=== PATIENT | male | born 1990 | race American Indian/Alaskan Native ===

== ENCOUNTER 2021-10-27 01:47 | Emergency (ER) | payer SELFPAY ==
[2021-10-27] MEDS ORDERED: SODIUM CHLORIDE 0.9% 1000 ML 2,000 ML IV ONE (02:09)
[2021-10-27] MEDS ORDERED: LORazepam 2 MG/ML VIAL IM ONE (02:09)
--- NOTE | 2021-10-27 02:32 | XRay Report ---
CHEST 1 VIEW 10/27/2021 1:25 AM INDICATION / CLINICAL INFORMATION: Medical Clearance Psych/ ALTERED MENTAL STATUS. COMPARISON: None available. FINDINGS: SUPPORT DEVICES: None. HEART / MEDIASTINUM: The heart size and pulmonary vasculature are normal. LUNGS / PLEURA: No significant pulmonary or pleural abnormality. No pneumothorax. ADDITIONAL FINDINGS: No significant additional findings. IMPRESSION: No acute findings. Signer Name: Jaziel Wheeler MD Signed: 10/27/2021 2:28 AM Workstation Name: [id number]
[2021-10-27 02:53] LABS: Basophils % (Auto) 0.1 % (0.0-1.8); Hematocrit 40.9 % (35.5-45.6); Hemoglobin 13.6 gm/dl (11.8-15.2); Lymphocytes # (Auto) 1.2 K/mm3 (1.2-5.4); Lymphocytes % (Auto) 19.4 % (13.4-35.0); Mean Corpuscular HGB Conc 33 % (32-34); Mean Corpuscular Volume 94 fl (84-94); Monocytes # (Auto) 0.5 K/mm3 (0.0-0.8); Platelet Count 303 K/mm3 (140-440); Red Blood Count 4.34 M/mm3 (3.65-5.03); Red Cell Distribution Width 13.5 % (13.2-15.2)
[2021-10-27] MEDS ORDERED: LORazepam 2 MG/ML VIAL IV ONE (02:53)
[2021-10-27 03:05] LABS: Alanine Aminotransferase 16 units/L (7-56); Albumin 4.2 g/dL (3.9-5); BUN/Creatinine Ratio 12; Blood Urea Nitrogen 13 mg/dL (9-20); Calcium 8.7 mg/dL (8.4-10.2); Hemolysis Index 28
[2021-10-27 04:56] LABS: Bilirubin,Urine NEG (Negative); Blood,Urine NEG (Negative); Color,Urine Colorless (Yellow); Mucus,Urine FEW /HPF; Protein,Urine <15 mg/dL mg/dL (Negative); Urobilinogen,Urine < 2.0 mg/dL (<2.0)
[2021-10-27 05:04] LABS: Amphetamine Screen,Urine Negative; Benzodiazepines Screen,Urine Negative; Cocaine Screen,Urine Negative; Methadone Screen,Urine Negative; Opiate Screen,Urine Negative
--- NOTE | 2021-10-27 05:16 | Emergency Department Report ---
ED General Adult HPI - General Chief complaint: Overdose Stated complaint: POSSIBLE OD Time Seen by Provider: 10/27/21 02:09 Source: patient, family Mode of arrival: Ambulatory Limitations: No Limitations - History of Present Illness Initial comments: Brought in by brother. Very restless Stating that his heart is going fast. He two 2 mollys and cannibis. -: Gradual, hour(s) Consistency: intermittent Improves with: none Worsens with: none Treatments Prior to Arrival: none - Related Data Allergies Allergy/AdvReac Type Severity Reaction Status Date / Time No Known Allergies Allergy Unverified 10/27/21 02:10 ED Review of Systems ROS: Stated complaint: POSSIBLE OD Other details as noted in HPI Constitutional: denies: chills, fever Eyes: denies: eye pain, eye discharge, vision change ENT: denies: ear pain, throat pain Respiratory: denies: cough, shortness of breath, wheezing Cardiovascular: denies: chest pain, palpitations Endocrine: no symptoms reported Gastrointestinal: denies: abdominal pain, nausea, diarrhea Genitourinary: denies: urgency, dysuria Musculoskeletal: denies: back pain, joint swelling, arthralgia Skin: denies: rash, lesions Neurological: denies: headache, weakness, paresthesias Psychiatric: denies: anxiety, depression Hematological/Lymphatic: denies: easy bleeding, easy bruising ED Past Medical Hx - Past Medical History Previous Medical History?: No - Surgical History Past Surgical History?: No - Social History Smoking Status: Current Every Day Smoker Substance Use Type: Marijuana, Methamphetamines ED Physical Exam - General Limitations: No Limitations General appearance: alert, appears intoxicated - Head Head exam: Present: atraumatic, normocephalic - Eye Eye exam: Present: normal appearance - ENT ENT exam: Present: mucous membranes moist - Neck Neck exam: Present: normal inspection - Respiratory Respiratory exam: Present: normal lung sounds bilaterally. Absent: respiratory distress - Cardiovascular Cardiovascular Exam: Present: regular rate, tachycardia. Absent: systolic murmur, diastolic murmur, rubs, gallop - GI/Abdominal GI/Abdominal exam: Present: soft, normal bowel sounds - Rectal Rectal exam: Present: deferred - Extremities Exam Extremities exam: Present: normal inspection - Back Exam Back exam: Present: normal inspection - Neurological Exam Neurological exam: Present: alert, oriented X3 - Psychiatric Psychiatric exam: Present: agitated, anxious. Absent: homicidal ideation, suicidal ideation - Skin Skin exam: Present: warm, dry, intact, normal color. Absent: rash ED Course Vital Signs 10/27/21 01:55 Temperature 98 F Pulse Rate 148 H Respiratory 20 Rate Blood Pressure 144/83 O2 Sat by Pulse 98 Oximetry - Reevaluation(s) Reevaluation #1: 10/27/21 05:13 fluids and ativan given feels better no SI or HI heart rate doen to 100 ED Medical Decision Making - Lab Data Result diagrams: 10/27/21 02:25 10/27/21 02:25 Critical care attestation.: If time is entered above; I have spent that time in minutes in the direct care of this critically ill patient, excluding procedure time. ED Disposition Clinical Impression: Substance abuse, Tetrahydrocannabinol (THC) use disorder, mild, abuse Disposition: 01 HOME / SELF CARE / HOMELESS Is pt being admited?: No Does the pt Need Aspirin: No Condition: Stable Referrals: MANAN BROWNING MD [Primary Care Provider] - 3-5 Days
[2021-10-27 05:26] LABS: Cannabinoid Screen,Urine PRESUMPTIVE POSITIVE
[2021-10-27 06:56] VITALS: BP 102/64
--- NOTE | 2021-10-27 11:46 | Electrocardiograph Report ---
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
== END 2021-10-27 08:16 | disposition home or self-care (01) ==
LOC: ED 01:47
DX: F19.10 Other psychoactive substance abuse, uncomplicated (principal); F17.200 Nicotine dependence, unspecified, uncomplicated; F12.90 Cannabis use, unspecified, uncomplicated; Z79.899 Other long term (current) drug therapy
CPT/HCPCS: 36415; 71045; 80053; 80307; 81001; 84443; 85025; 93005; 93010; 96361; 96372; 96374; 99285; J2060; J7030; 80320; Q0162; G0480

== ENCOUNTER 2021-12-31 21:45 | Emergency (ER) | payer SELFPAY ==
[2021-12-31 22:19] VITALS: BP 122/81
[2022-01-01] MEDS: LIDOCAINE-MPF (1%) 10 MG/1 ML VIAL 5 ML INFILTRATI ONE (02:39)
--- NOTE | 2022-01-01 02:53 | Emergency Department Report ---
<MELISSA SEARS - Last Filed: 01/01/22 05:30> ED Male HPI - General Chief complaint: Urogenital-Male Stated complaint: BURNING URINATION/PENILE DISCHARGE Source: patient Mode of arrival: Ambulatory Limitations: No Limitations - History of Present Illness Initial comments: Patient is a 31-year-old -[place] male with no past medical history presents to the ED with complaint of acute onset persistent dysuria, urinary frequency and urgency, and penile discharge for the last 4 days. Patient states that he had unprotected sexual intercourse about a week ago with a new sexual partner. Patient states that the pain is especially worse with urination. Patient denies dizziness, syncope, nausea and vomiting, chest pain, shortness of breath, testicular pain, hematuria, abdominal pain, diarrhea, low back pain, fever and chills. MD Complaint: penile discharge (Penile discharge), dysuria -: Sudden, days(s) (4) Location: penis Radiation: none Severity: severe Severity scale (0 -10): 7 Quality: burning, sharp Consistency: constant Improves with: none Worsens with: urination new sexual partner denies other symptoms, discharge, dysuria. denies: swelling, mass, rash, urinary retention, blood in urine, fever, nausea/vomiting, incontinence - Related Data Sexually active: Yes Previous Rx's Medication Instructions Recorded Last Taken Type Doxycycline Hyclate 100 mg PO Q12H #28 cap 01/01/22 Unknown Rx Phenazopyridine [Pyridium] 200 mg PO BID #20 tab 01/01/22 Unknown Rx Allergies Allergy/AdvReac Type Severity Reaction Status Date / Time No Known Allergies Allergy Unverified 10/27/21 02:10 ED Review of Systems Constitutional: denies: chills, fever Eyes: denies: eye pain, eye discharge, vision change ENT: denies: ear pain, throat pain Respiratory: denies: cough, shortness of breath, wheezing Cardiovascular: denies: chest pain, palpitations Endocrine: no symptoms reported Gastrointestinal: denies: abdominal pain, nausea, diarrhea Genitourinary: urgency, dysuria, frequency, discharge. denies: hematuria, testicular pain, testicular mass Musculoskeletal: denies: back pain, joint swelling, arthralgia Skin: denies: rash, lesions Neurological: denies: headache, weakness, paresthesias Psychiatric: denies: anxiety, depression Hematological/Lymphatic: denies: easy bleeding, easy bruising ED Past Medical Hx - Social History Smoking Status: Never Smoker Substance Use Type: Alcohol - Medications Home Medications: Home Medications Medication Instructions Recorded Confirmed Last Taken Type Doxycycline Hyclate 100 mg PO Q12H #28 cap 01/01/22 Unknown Rx Phenazopyridine [Pyridium] 200 mg PO BID #20 tab 01/01/22 Unknown Rx ED Physical Exam - General Limitations: No Limitations General appearance: alert, in no apparent distress - Head Head exam: Present: atraumatic, normocephalic, normal inspection - Eye Eye exam: Present: normal appearance, PERRL, EOMI Pupils: Present: normal accommodation - ENT ENT exam: Present: normal exam, normal orophraynx, mucous membranes moist, TM's normal bilaterally, normal external ear exam - Neck Neck exam: Present: normal inspection, full ROM. Absent: tenderness - Respiratory Respiratory exam: Present: normal lung sounds bilaterally. Absent: respiratory distress, wheezes, rales, rhonchi, stridor, chest wall tenderness, accessory muscle use, decreased breath sounds, prolonged expiratory - Cardiovascular Cardiovascular Exam: Present: normal rhythm, tachycardia, normal heart sounds. Absent: systolic murmur, diastolic murmur, rubs, gallop - GI/Abdominal GI/Abdominal exam: Present: soft, normal bowel sounds. Absent: tenderness, guarding, rebound, hyperactive bowel sounds, hypoactive bowel sounds, organomegaly, mass - exam: Present: urethral discharge, circumcision. 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 Absent: tenderness, CVA tenderness (R), CVA tenderness (L), muscle spasm, paraspinal tenderness, vertebral tenderness - Neurological Exam Neurological exam: Present: alert, oriented X3, CN II-XII intact, normal gait, reflexes normal - Psychiatric Psychiatric exam: Present: normal affect, normal mood - Skin Skin exam: Present: warm, dry, intact, normal color. Absent: rash ED Medical Decision Making - Medical Decision Making This is a 31-year-old -[place] male with no past medical history presents to the ED with complaint of acute onset persistent dysuria, urinary frequency and urgency, and penile discharge for the last 4 days. Patient states that he had unprotected sexual intercourse about a week ago with a new sexual partner. Patient states that the pain is especially worse with urination. In the ED, patient is alert and oriented x3 and is not in any distress. Urinalysis was ordered and the patient was empirically treated for suspected gonorrhea infection. Patient was discharged home on medications and advised to ensure that his sexual partner gets treated. Patient was also counseled on the importance of safe sexual practices. Patient was advised to follow-up with the [facility] for further STD testing including HIV and syphilis. Patient advised return to the ED immediately if symptoms get worse. - Differential Diagnosis Urethritis; gonorrhea; chlamydia; STD; UTI; ED Disposition Clinical Impression: Urethritis, nonspecific, Dysuria, Acute urinary tract infection, STD (sexually transmitted disease), Gonorrhea in male Disposition: 01 HOME / SELF CARE / HOMELESS Is pt being admited?: No Does the pt Need Aspirin: No Condition: Stable Instructions: Chlamydia, Male, Urinary Tract Infection, Adult, [id number], Dysuria, Gonorrhea Additional Instructions: Take medication with food, drink plenty of fluids and follow-up with the [facility] for further STD testing including HIV and syphilis. Ensure that your sexual partner also gets tested and treated for the same. Return to the ED immediately if symptoms get worse. Prescriptions: Doxycycline Hyclate 100 mg PO Q12H #28 cap Phenazopyridine [Pyridium] 200 mg PO BID #20 tab Referrals: AMADA SONI MD [Primary Care Provider] - as needed [facility] [Outside] - 7-10 days Forms: STI Treatment and Prevention Time of Disposition: 02:54 Print Language: [place]ORE[place] <LANE [place]QUE - Last Filed: 01/01/22 05:57> ED Review of Systems ROS: Stated complaint: BURNING URINATION/PENILE DISCHARGE Other details as noted in HPI ED Course Vital Signs 12/31/21 01/01/22 22:18 02:56 Temperature 98.7 F Pulse Rate 109 H 78 Respiratory 18 16 Rate Blood Pressure 122/81 O2 Sat by Pulse 99 100 Oximetry Critical care attestation.: If time is entered above; I have spent that time in minutes in the direct care of this critically ill patient, excluding procedure time. ED Disposition Is pt being admited?: No Does the pt Need Aspirin: No
[2022-01-01 04:02] LABS: Bilirubin,Urine NEG (Negative); Blood,Urine NEG (Negative); Color,Urine Yellow (Yellow); Mucus,Urine 1+ /HPF
== END 2022-01-01 03:15 | disposition home or self-care (01) ==
LOC: ED 21:45
DX: N34.2 Other urethritis (principal); Z72.89 Other problems related to lifestyle; A54.9 Gonococcal infection, unspecified; Z79.899 Other long term (current) drug therapy
CPT/HCPCS: 81001; 87086; 96372; 99283; J0696; J3490